=== PATIENT | female | born 1980 | race Caucasian/White ===

== ENCOUNTER 2017-06-18 11:12 | Emergency (ER) | payer OTHER ==
[~2017-06-18] VITALS: Ht 160 cm; Wt 63.5 kg
[~2017-06-18 11:12] MED LIST: BUTALB-APAP-CA1 EACH PO; IBUPROFEN 400400 M1 PO; NORCO 5-325 TA1 EACH PO; TOPAMAX 25 MG T25 M1 PO; XANAX 0.5 MG0.5 MG PO
[2017-06-18] MEDS ORDERED: WELLBUTRIN SR150 MG PO (11:27)
[2017-06-18] MEDS ORDERED: NORFLEX100 MG PO (12:52)
[2017-06-18] MEDS ORDERED: NAPROSYN500 MG PO (12:52)
[2017-06-18] MEDS ORDERED: NORCO 5-325 TA1 EACH PO (12:52)
[2017-06-18 12:54] VITALS: BP 112/69
== END 2017-06-18 13:03 | disposition home or self-care (01) ==
LOC: ER 11:12
DX: S30.0XXA Contusion of lower back and pelvis, initial encounter (principal); F41.9 Anxiety disorder, unspecified; F32.9 Major depressive disorder, single episode, unspecified; Z88.0 Allergy status to penicillin; Z88.1 Allergy status to other antibiotic agents; Z88.8 Allergy status to other drugs, medicaments and biological substances; W01.0XXA Fall on same level from slipping, tripping and stumbling without subsequent striking against object, initial encounter; Y93.89 Activity, other specified; Y92.89 Other specified places as the place of occurrence of the external cause; Y99.9 Unspecified external cause status

== ENCOUNTER 2018-04-28 18:19 | Emergency (ER) | payer OTHER ==
[~2018-04-28] VITALS: Ht 160 cm; Wt 56.7 kg
[~2018-04-28 18:19] MED LIST changes: +NAPROSYN500 MG PO; +NORFLEX100 MG PO; +WELLBUTRIN SR150 MG PO
[2018-04-28 18:26] VITALS: BP 121/73
[2018-04-28] MEDS ORDERED: SERTRALINE HCL50 MG PO (19:30)
[2018-04-28] MEDS ORDERED: HYDROCODONE-AP1 EAC6 PO (19:58)
[2018-04-28] MEDS ORDERED: MEDROLDOSEPACK PO (19:59)
== END 2018-04-28 20:23 | disposition home or self-care (01) ==
LOC: ER 18:19
DX: M25.511 Pain in right shoulder (principal); G43.909 Migraine, unspecified, not intractable, without status migrainosus; F41.9 Anxiety disorder, unspecified; F32.9 Major depressive disorder, single episode, unspecified; Z88.0 Allergy status to penicillin; Z88.1 Allergy status to other antibiotic agents

== ENCOUNTER 2018-08-27 11:57 | Emergency (ER) | payer BC ==
[~2018-08-27] VITALS: Ht 160 cm; Wt 56.7 kg
[~2018-08-27 11:57] MED LIST changes: +HYDROCODONE-AP1 EAC6 PO; +MEDROLDOSEPACK PO; +SERTRALINE HCL50 MG PO
[2018-08-27] MEDS ORDERED: ULTRAM 50MG TAB50 MG PO (13:14)
[2018-08-27 13:22] VITALS: BP 130/73
== END 2018-08-27 13:23 | disposition home or self-care (01) ==
LOC: ER 11:57
DX: S30.0XXA Contusion of lower back and pelvis, initial encounter (principal); F17.210 Nicotine dependence, cigarettes, uncomplicated; F41.9 Anxiety disorder, unspecified; F32.9 Major depressive disorder, single episode, unspecified; G43.909 Migraine, unspecified, not intractable, without status migrainosus; Z88.1 Allergy status to other antibiotic agents; Z88.8 Allergy status to other drugs, medicaments and biological substances; Z88.0 Allergy status to penicillin; W01.198A Fall on same level from slipping, tripping and stumbling with subsequent striking against other object, initial encounter; Y92.481 Parking lot as the place of occurrence of the external cause; Y99.0 Civilian activity done for income or pay; Y99.8 Other external cause status